=== PATIENT | female | born 1965 | race Caucasian/White ===

== ENCOUNTER 2019-05-24 09:14 | Emergency (ER) | payer BC ==
--- OUTSIDE RECORDS SUMMARY | 2019-05-24 09:56 | XMS REPORT | Continuity of Care Document ---
:1965 External Reference #:[id number] Author Name Feli Mendez PA Address [address] [place] [address] Care Team Providers Name Role Phone Rukhsana Cat DR Care Team Information Dowel Inspector [phone] Problems Active Problems Provider Date Family history of malignant neoplasm of Dillan Reid DO Onset: 2013 gastrointestinal tract Genital herpes simplex Dillan Reid DO Onset: 08/06/2011 Gastroesophageal reflux disease Dillan Reid DO Onset: 12/07/2010 Adjustment disorder with depressed mood Dillan Reid DO Onset: 2010 Mixed hyperlipidemia Dillan Reid DO Onset: 10/05/2014 Migraine without aura, not refractory Dillan Reid DO Onset: 10/05/2014 Adjustment disorder with depressed mood Dillan Reid DO Onset: 2015 Peptic reflux disease Onset: 03/24/2015 Social History Type Date Description Comments Sex Unknown ETOH Use Occasionally consumes alcohol Tobacco Use Start: Unknown End: Unknown Patient is a former smoker Quit 2000 Smoking Status Reviewed: 09/17/17 Patient is a former smoker Quit 2000 Allergies, Adverse Reactions, Alerts Active Allergies Reaction Severity Comments Date Fluticasone Causes Headache 07/30/2016 Inactive Allergies NKDA 10/05/2014 Medications Active Medications SIG Qnty Indications Ordering Date Provider Escitalopram Oxalate take 1tablet by 90tabs F43.21 Tristen Lozada, 2018 20mg mouth once daily DO Tablets Amitriptyline HCL take one tablet 30tabs Tristen Lozada, 04/02/2019 25mg by mouth at DO Tablets bedtime Meclizine HCL take one to two 60tabs H81.12 Tristen Lozada, 07/14/2018 12.5mg tablets by mouth DO Tablets three times daily as needed for dizziness Omeprazole Take One Capsule 90caps K21.9 Tristen Lozada, 10/24/2017 20mg Capsules By Mouth Every DO DR Day Valacyclovir HCL take one tablet 15tabs A60.00 Tristen Lozada, 06/05/2010 1gm by mouth three DO Tablets times a day for 5 days Ibuprofen 2-3 tid prn [place], 06/01/2010 200mg Capsules Dillan, Sumatriptan Succinate Take 1 Tablet By 10tabs G43.009 Tristen Lozada, Mouth With DO 25mg Tablets Headache Onset May Repeat In 2 Hours Levothyroxine Sodium 1 by mouth every Unknown day 50mcg Tablets History Medications Fluoxetine HCL 1 by mouth 30caps R53.83 Tristen Lozada, 03/02/2019 - 20mg every day DO 04/02/2019 Capsules Duloxetine HCL 1 by mouth 30caps Tristen Lozada, 01/29/2019 - 20mg every day DO 04/02/[address] Part Amoxicillin/Clavulan 1 by mouth 20tabs J01.90 Tristen Lozada, 12/03/2018 - ate Potassium twice a day x DO 12/13/2018 10 days 875-125mg Tablets Immunizations CPT Code Status Date Vaccine Reaction Lot # [id number] Given 05/11/2015 [facility] Refused 05/05/2018 Afluria Imunization Q2035 Refused 04/30/2018 Afluria Imunization NOT SURE IF SHE WILL GET Vital Signs Date Vital Result Comment 04/02/2019 11:26am Weight 141.00 lb Heart Rate 74 /min BP Systolic 140 mmHg BP Diastolic 80 mmHg Respiratory Rate 18 /min Height 66.50 inches 5'6.50" BMI (Body Mass Index) 22.4 kg/m2 03/02/2019 2:25pm Weight 139.00 lb Heart Rate 72 /min BP Systolic 130 mmHg BP Diastolic 80 mmHg Respiratory Rate 18 /min Height 66.50 inches 5'6.50" BMI (Body Mass Index) 22.1 kg/m2 Results Test Date Facility Test Result H/L Range Note Laboratory test 01/29/2019 [facility] Antibody Igg Negative Negative finding Clarisa Screen With 01/29/2019 [facility] Screen NEGATIVE Negative Reflex-[facility] dsDNA IgG 1.30 IU/mL 0.00-9.00 1 Laboratory test finding 01/29/2019 [facility] 32 mm/hr High 0-20 CRP (C-Reactive) 0.14 mg/dL 0.00-0.75 Rheumatoid Factor-[facility] 11.1 IU/mL High 0.0-10.0 Laboratory 01/29/2019 [facility] Anti-Streptolysn O <200 (0-200) 2 test finding IU/mL Lipid 10/23/2018 [facility] Cholesterol 266 mg/dL High <200 3, 4 (315)- - Triglycerides 71 mg/dL <150 5 HDL Cholesterol 79 mg/dL >40 6 LDL-Cholesterol 173 mg/dL < 100 7 Comprehensive Met 10/23/2018 [facility] Glucose 85 mg/dL Normal 74-106 Panel-FCMG (315)- - BUN 20 mg/dL High 7-18 Creatinine 0.7 mg/dL Normal 0.6-1.3 Glom Filtration Rate, Estimate >60 mL/min >60 If >60 mL/min >60 8 BUN/Creat 28.5 ratio Sodium 140 mmol/L Normal 136-145 Potassium 4.1 mmol/L Normal 3.5-5.1 Chloride 107 mmol/L Normal 98-107 Carbon Dioxide 26 mmol/L Normal 21-32 Anion Gap 7 mEq/L Low 8-16 Calcium 8.4 mg/dL Low 8.5-10.1 Total Protein 7.5 g/dL Normal 6.4-8.2 Albumin 3.9 g/dL Normal 3.4-5.0 Globulin 3.6 g/dL Normal 1.9-4.3 Alb/Glob 1.1 ratio Bilirubin,Total 0.3 mg/dL Normal 0.2-1.0 Sgot/Ast 15 U/L Normal 15-37 SGPT/Alt 15 U/L Normal 12-78 Alkaline Phosphatase 54 U/L Normal 45-117 Laboratory test 10/23/2018 [facility] Thyroid Stim 4.88 uIU/mL High 0.30-4.20 finding (315)- - Hormone Free T4 0.87 ng/dL Normal 0.76-1.46 Ebv Acute 10/23/2018 [facility] Ebv AB Vca,Igm <36.0 U/ mL 0.0-35.9 9 Infection (315)- - Antibodies Ebv Early Antigen AB, IgG 45.9 U/mL High 0.0-8.9 10 Ebv AB Vca,Igg 308.0 U/mL High 0.0-17.9 11 Ebv Nuclear Antigen AB, Igg >600.0 U/mL High 0.0-17.9 12 Ebv Interpretation (SEE NOTE) 13 Laboratory test 10/23/2018 [facility] Thyroid 131 IU/mL High 0-34 14 finding (315)- - Peroxidase Antibodies 1 Interpretation: <0.5 -9 IU/ml Negative 10-15 IU/ml Equivocal >15.0 IU/ml Positive 2 Unless otherwise specified, testing performed by [facility] [address] [place] [address] 3 E78.2 E07.89 B27.90 4 Reference Guidelines*: Desirable: ........... < 200 mg/dL Borderline High: ..... 200-239 mg/dL High: ................ >= 240 mg/dL * The National Cholesterol Education Program (NCEP) 5 Reference Guidelines*: Normal: ............. < 150 mg/dL Borderline High: .... 150-199 mg/dL High: ............... 200-499 mg/dL Very High: .......... > 500 mg/dL * Source: National Cholesterol Education Program (NCEP) 6 Reference Guidelines*: Low HDL: ..... < 40 mg/dL Normal: ..... 40-60 mg/dL Desirable: ... > 60 mg/dL *The National Cholesterol Education Program(NCEP) 7 Reference Guidelines*: Optimal:........... <100 mg/dL Near Optimal....... 100-129 mg/dL Borderline High.... 130-159 mg/dL High............... 160-189 mg/dL Very High.......... >=190 mg/dL * Source: National Cholesterol Education Program (NCEP) 8 Note: Persistent reduction for 3 months or more in an eGFR <60 mL/min/1.73 m2 defines CKD. Patients with eGFR values >/=60 mL/min/1.73 m2 may also have CKD if evidence of persistent proteinuria is present. The original MDRD equation for estimated GFR is not valid for patients less than 18 years of age. Additional information may be found at www.kdoqi.org. 9 Negative <36.0 Equivocal 36.0 - 43.9 Positive >43.9 10 Hepatitis A, Hepatitis C and HIV antibodies may cross-react with this assay. Negative < 9.0 Equivocal 9.0 - 10.9 Positive >10.9 11 Negative <18.0 Equivocal 18.0 - 21.9 Positive >21.9 12 Negative <18.0 Equivocal 18.0 - 21.9 Positive >21.9 13 EBV Interpretation Chart Interpretation EBV-IgM EA(D)-IgG VCA-IgG EBNA-IgG EBV Seronegative - - - - Early Phase + - - - Acute Primary + +or- + - Infection Convalescence/Past - +or- + + Infection Reactivated +or- + + + Infection + Antibody Present - Antibody Absent 14 Performed at: RN - [facility] [address] [id number] [employer] Machine Operator: Yvonne Craft MD, Phone: [phone] Procedures Date Code Description Status 04/02/2019 00117 Brief Emotional/Behav Assessment W/ Scoring Doc Per Completed Standard Inst 03/20/2017 21000148 Mammogram Completed 10/17/2016 23267947 Colonoscopy Completed Medical Devices Description No Information Available Encounters Type Date Location Provider Dx Diagnosis Office Visit 03/02/2019 2:30p [facility] Feli Mendez PA R53.83 Other fatigue M25.50 Pain in unspecified joint Office Visit 01/29/2019 1:45p [facility] Feli Mendez PA R53.83 Other fatigue M25.50 Pain in unspecified joint J02.9 Acute pharyngitis, unspecified Office Visit 01/08/2019 1:45p [facility] Feli Mendez PA B27.90 Infectious mononucleosis, unspecified without complication R53.83 Other fatigue Office Visit 12/03/2018 3:30p [facility] Feli Mendez PA J01.90 Acute sinusitis, unspecified M79.604 Pain in RIGHT leg Office Visit 10/29/2018 3:30p [facility] Feli Mendez PA B27.90 Infectious mononucleosis, unspecified without complication E78.2 Mixed hyperlipidemia K21.9 Gastro-esophageal reflux disease without esophagitis G43.109 Migraine with aura, not intractable, w/o status migrainosus Assessments Date Code Description Provider 04/02/2019 R53.83 Fatigue Feli Mendez PA 04/02/2019 M25.50 Multiple joint pain Feli Mendez PA 04/02/2019 R41.3 Other amnesia Feli Mendez PA 04/02/2019 M25.531 Pain in RIGHT wrist Feli Mendez PA 03/02/2019 R53.83 Fatigue Feli Mendez PA 03/02/2019 M25.50 Multiple joint pain Feli Mendez PA 01/29/2019 J02.9 Acute pharyngitis, unspecified Feli Mendez PA 01/29/2019 R53.83 Fatigue Feli Mendez PA 01/29/2019 R53.83 Other fatigue Feli Mendez PA 01/29/2019 M25.50 Multiple joint pain Feli Mendez PA 01/29/2019 M25.50 Pain in unspecified joint Feli Mendez PA 01/29/2019 J02.9 Pharyngitis Feli Mendez PA 01/29/2019 J02.9 Acute pharyngitis, unspecified Schedule, Laboratory 01/29/2019 R53.83 Other fatigue Schedule, Laboratory 01/29/2019 M25.50 Pain in unspecified joint Schedule, Laboratory 01/29/2019 R53.83 Other fatigue [facility] 01/29/2019 M25.50 Pain [facility] unspecified [facility] 01/08/2019 B27.90 Infectious mononucleosis, unspecified without Feli Mendez PA complication 01/08/2019 R53.83 Other fatigue Feli Mendez PA 12/03/2018 J01.90 Acute sinusitis, unspecified Feli Mendez PA 12/03/2018 M79.604 Pain in RIGHT leg Feli Mendez PA 10/29/2018 B27.90 Infectious mononucleosis, unspecified without Feli Mendez PA complication 10/29/2018 E78.2 Mixed hyperlipidemia Feli Mendez PA 10/29/2018 K21.9 Gastro-esophageal reflux disease without Feli Mendez PA esophagitis 10/29/2018 G43.109 Migraine with aura, not intractable, without Feli Mendez PA status migraino Plan of Treatment Future Appointment(s):04/27/2019 2:30 pm - Feli Mendez PA at [facility]2018 - Feli Mendez PAR53.83 FatigueComments:Suspect symptoms related to fibromyalgiaHas appt with rheumatology in 2 weeksFollow up:As gbrdxzrypF60.50 Multiple joint painComments:Suspect d/t fibromyalgiaWill start amitriptylineHas not done well with duloxetine, izwvsdinwuK15.3 Other amnesiaNew Xrays:CT, Head/ Brain Without Contrast, Ordered: 04/02/19Comments:Suspect her symptoms are related to fibromyalgiaWith pt's FH of dementia and concern, will check CT for evalPt requests neuro lfndbsqfW66.531 Pain in RIGHT wristNew Orders:EMG w/Nerve Conduct Study, Upper, Ordered: 04/02/19Comments:? CTSAdvised to wear cock up wrist splint at nightWill order EMG for eval Functional Status Description No Information Available Mental Status Description No Information Available Referrals Refer to Reason for Referral Status Appt Date Jf Elena DR Elevated RF. Joint pains, fatigue faxed Scheduled 04/20 referral note and labs to office kw 02/10 faxed referral note and labs to office kw 02/[address] [place] [address] [phone]
--- OUTSIDE RECORDS SUMMARY | 2019-05-24 09:56 | XMS REPORT | Continuity of Care Document ---
:1965 External Reference #:[id number] Author Name Feli Mendez PA Address [address] [place] [address] Care Team Providers Name Role Phone Rukhsana Cat DR Care Team Information Staff Pharmacist [phone] Problems Active Problems Provider Date Family history [...] Qnty Indications Ordering Date Provider Escitalopram Oxalate Take One Tablet 90tabs F43.21 Tristen Lozada, 2018 20mg By Mouth Every DO Tablets Day Amitriptyline HCL take one tablet 30tabs Tristen [...] Sodium 1 by mouth every Unknown day 100mcg Tablets Meloxicam 1 by mouth every Unknown 7.5mg Tablets day History Medications Fluoxetine HCL 1 by mouth 30caps R53.83 Tristen Lozada, 03/02/2019 - 20mg every day DO 04/02/2019 Capsules Duloxetine HCL 1 by mouth 30caps Tristen Lozada, 01/29/2019 - 20mg every day DO 04/02/[address] [place]ra Amoxicillin/Clavulan 1 by mouth 20tabs J01.90 Tristen Lozada, 12/03/2018 - ate Potassium twice a day x DO 12/13/2018 10 days 875-125mg Tablets Immunizations CPT Code Status Date Vaccine Reaction Lot # Q2035 Given 05/11/2015 [facility] Q[facility] Refused 05/05/2018 Afluria Imunization Q2035 Refused 04/30/2018 Afluria Imunization NOT SURE IF SHE WILL GET Vital Signs Date Vital Result Comment 04/27/2019 11:26am Weight 141.00 lb Heart Rate 74 /min BP Systolic 110 mmHg BP Diastolic 70 mmHg Respiratory Rate 18 /min Height 66.50 inches 5'6.50" BMI (Body Mass Index) 22.4 kg/m2 04/02/2019 11:26am Weight 141.00 lb Heart Rate 74 /min BP Systolic 140 mmHg BP Diastolic 80 mmHg Respiratory Rate 18 /min Height 66.50 inches 5'6.50" BMI (Body Mass Index) 22.4 kg/m2 Results Test Date Facility Test Result H/L Range Note Laboratory test 04/16/2019 [facility] Thyroid Stim 26.50 High 0.30-4.20 1 finding (315)- - Hormone uIU/mL Free T4 0.82 ng/dL Normal 0.76-1.46 Laboratory test finding 01/29/2019 [facility] Antibody Igg Negative Negative Clarisa Screen With 01/29/2019 [facility]isa Screen NEGATIVE Negative Reflex-[facility] dsDNA IgG 1.30 IU/mL 0.00-9.00 2 Laboratory test finding 01/29/2019 [facility] Esr 32 mm/hr High 0-20 CRP (C-Reactive) 0.14 mg/dL 0.00-0.75 Rheumatoid Factor-[facility] 11.1 IU/mL High 0.0-10.0 Laboratory test finding 01/29/2019 [facility] Anti-Streptolysn O <200 IU/mL (0-200) 3 1 NO DX #'S T4 FREE TSH 2 Interpretation: <0.5 -9 IU/ml Negative 10-15 IU/ml Equivocal >15.0 IU/ml Positive 3 Unless otherwise specified, testing performed by [facility] [address] [place] [address] Procedures Date Code Description Status 04/02/2019 03621 Brief Emotional/Behav Assessment W/ Scoring Doc Per Completed Standard Inst 03/20/2017 [id number] Mammogram Completed 10/17/2016 68192918 Colonoscopy Completed Medical Devices Description No Information Available Encounters Type Date Location Provider Dx Diagnosis Office Visit 04/02/2019 11:30a Feli Evans PA R53.83 Other fatigue M25.50 Pain in unspecified joint R41.3 Other amnesia M25.531 Pain in RIGHT wrist F43.21 Adjustment disorder with depressed mood Office Visit 03/02/2019 2:30p Feli Evans PA R53.83 Other fatigue M25.50 Pain in unspecified joint Office Visit 01/29/2019 1:45p Feli Evans PA R53.83 Other fatigue M25.50 Pain in unspecified joint J02.9 Acute pharyngitis, unspecified Office Visit 01/08/2019 1:45p Feli Evans PA B27.90 Infectious mononucleosis, unspecified without complication R53.83 Other fatigue Office Visit 12/03/2018 3:30p [facility] Feli M[facility] J01.90 Acute sinusitis, unspecified M79.604 Pain in RIGHT leg Office Visit 10/29/2018 3:30p [facility] Feli Mendez PA B27.90 Infectious mononucleosis, unspecified without complication E78.2 Mixed hyperlipidemia K21.9 Gastro-esophageal reflux disease without esophagitis G43.109 Migraine with aura, not intractable, w/o status migrainosus Assessments Date Code Description Provider 04/27/2019 M79.7 Fibromyalgia Feli Mendez PA 04/27/2019 E03.9 Hypothyroidism, unspecified Feli Mendez PA 04/02/2019 R53.83 Fatigue Feli Mendez PA 04/02/2019 M25.50 Multiple joint pain Feli Mendez PA 04/02/2019 R41.3 Other amnesia Feli Mendez PA 04/02/2019 M25.531 Pain in RIGHT wrist Feli Mendez PA 04/02/2019 F43.21 Adjustment disorder with depressed mood Feli Mendez PA 03/02/2019 R53.83 Fatigue Feli [...] Lab 01/29/2019 M25.50 Pain in unspecified [facility] 01/08/2019 B27.90 Infectious mononucleosis, unspecified [...] PA status migraino Plan of Treatment Future Appointment(s):07/31/2019 11:30 am - Feli Mendez [facility] at [email or web address] - Feli Mendez PAM79.7 FibromyalgiaComments:StableContinue current treatmentContinue care with rheumatology - will wait lab resultsFollow up:3 months, sooner prnE03.9 Hypothyroidism, unspecifiedComments:Continue care with endocrinology Functional Status Description No Information Available Mental Status Description No Information Available Referrals Refer to Reason for Referral Status Appt Date Jf Elena, Elevated RF. Joint pains, fatigue faxed Closed 2018 referral note and labs to office kw 02/10 faxed referral note and labs to office 02/[address] [place] [address] [phone]
[2019-05-24 10:07] VITALS: BP 132/59
--- NOTE | 2019-05-24 11:04 | UC ---
Headache HPI - HPI Summary HPI Summary: Pt presents with c/o MILLER that began 7 days ago. Pt has hx of migraines and has been taking her RX for migraine with no improvement. pt states that the MILLER is different from her typical migraine. She states that the pain has fluctuated from left parietal to right parietal, begins at base of the left side of head and neck and radiated behind left eye as well. pt denies any neurological symptoms. Pt has been taking RX for migraine and additional NSAID with no improvement. Denies fever, chills, ST, vision changes, cough, nasal congestion or rash. - History Of Current Complaint Chief Complaint: UCHeadache Stated Complaint: HEADACHE Time Seen by Provider: 05/24/19 10:04 Hx Obtained From: Patient Hx Last Menstrual Period: hysterectomy ?: No Onset/Duration: Gradual Onset, Lasting Days - 7, Still Present Onset Of Symptoms: Gradual Initially Headache Was: Severe Currently Pain Is: Severe Pain Intensity: 10 Pain Scale Used: 0-10 Numeric Timing: Constant Character: Dull, Pressure Location of Headache: Diffuse, Frontal, Parietal, Occipital Aggravating Factor(s): Exertion Allevating Factor(s): Nothing Associated Signs And Symptoms: Positive: Neck Pain - Risk Factors SAH Risk Factors: Negative Meningitis Risk Factors: Negative SDH Risk Factors: Negative Temporal Arteritis Risk Factors: Female - Allergies/Home Medications Allergies/Adverse Reactions: Allergies Allergy/AdvReac Type Severity Reaction Status Date / Time fluticasone [From Flonase] Allergy Headache Verified 05/24/19 10:07 Home Medications: Home Medications Aspirin TAB* [Aspirin 325 MG TAB*] 2 tab PO ONCE 05/24/19 [History Confirmed ] Levothyroxine Sodium [Tirosint] 100 mcg PO DAILY 05/24/19 [History Confirmed ] Naproxen Sodium [Aleve] 2 tab PO ONCE 05/24/19 [History Confirmed 05/24/19] PMH/Surg Hx/FS Hx/Imm Hx Previously Healthy: Yes - Surgical History Surgical History: Yes Surgery Procedure, Year, and Place: tubal ligation. hysterectomy 2017. sinus sx 2018 - Family History Known Family History: Positive: Cardiac Disease - Social History Occupation: Employed Full-time Lives: Alone Alcohol Use: Occasionally Substance Use Type: Marijuana Substance Use Comment - Amount & Last Used: occasionally Smoking Status (MU): Former Smoker Have You Smoked in the Last Year: No - marijuana When Did the Patient Quit Smoking/Using Tobacco: 2000 Review of Systems All Other Systems Reviewed And Are Negative: Yes Constitutional: Positive: Fatigue Skin: Positive: Negative Eyes: Positive: Negative ENT: Positive: Negative Respiratory: Positive: Negative Cardiovascular: Positive: Negative Gastrointestinal: Positive: Negative Genitourinary: Positive: Negative Motor: Positive: Negative Neurovascular: Positive: Negative Musculoskeletal: Positive: Negative Neurological: Positive: Headache Psychological: Positive: Negative Is Patient Immunocompromised?: No Physical Exam Triage Information Reviewed: Yes Appearance: Pain Distress Vital Signs: Initial Vital Signs Temp 97.2 F 05/24/19 10:00 Pulse 69 05/24/19 10:00 Resp 18 05/24/19 10:00 BP 132/59 05/24/19 10:00 Pulse Ox 100 05/24/19 10:00 Vital Signs Reviewed: Yes Eye Exam: Normal - PERRLA ENT Exam: Normal ENT: Positive: Normal ENT inspection Dental Exam: Normal Neck exam: Normal Respiratory Exam: Normal Cardiovascular Exam: Normal Musculoskeletal Exam: Normal Neurological Exam: Normal Psychological Exam: Normal Skin Exam: Normal Headache Course/Dx - Course Course Of Treatment: I discussion with pt, it was recommended that she go to the closest ER for further evaluation and treatment. Pt verbalized understanding and agreed to plan of care. - Differential Dx/Diagnosis Differential Diagnosis/HQI/PQRI: Meningitis, Migraine, Sinus Headache, Tension Headache Provider Diagnosis: Headache Discharge ED - Sign-Out/Discharge Documenting (check all that apply): Patient Departure All imaging exams completed and their final reports reviewed: No Studies - Discharge Plan Condition: Stable Disposition: HOME-RECOMMEND TO ED Patient Education Materials: Tension Headache (ED) Referrals: Feli Mendez PA [Primary Care Provider] - As Soon As Possible Additional Instructions: It is recommended that you seek further testing and treatment at the closest emergency room immediately. - Billing Disposition and Condition Condition: STABLE Disposition: Home-Recommend to ED
== END 2019-05-24 10:34 | disposition home health service (06) ==
LOC: UCCORT 09:14
DX: R51 Headache (principal); G89.29 Other chronic pain; G43.909 Migraine, unspecified, not intractable, without status migrainosus; Z87.891 Personal history of nicotine dependence; Z88.8 Allergy status to other drugs, medicaments and biological substances; Z79.82 Long term (current) use of aspirin; Z79.899 Other long term (current) drug therapy
CPT/HCPCS: 99212; G0463